=== PATIENT | female | born 2000 | race Caucasian/White ===

== ENCOUNTER 2023-04-26 13:53 | Emergency (ER) | payer SELFPAY ==
[2023-04-26] MEDS ORDERED: Sodium Chloride 0.9% 1,000 ML ONE (15:22)
== END 2023-04-26 16:08 | disposition home or self-care (01) ==
LOC: NAV ERS 13:53 → EEVIPCON 13:53 → NAV ERS 16:08
DX: S10.93XA Contusion of unspecified part of neck, initial encounter (principal); S30.0XXA Contusion of lower back and pelvis, initial encounter; S40.011A Contusion of right shoulder, initial encounter; Y04.8XXA Assault by other bodily force, initial encounter
CPT/HCPCS: 72125; J7050